=== PATIENT | female | born 1945 | race African-American/Black ===

== ENCOUNTER → 2020-02-17 | Outpatient (CLI) | payer OTHER, MEDICARE ==
[~2020-02-17] MED LIST: ABIL5 PO; ACET-2708 PO; ATOR40TA70 PO; B25 PO; COLC0.6C3 PO; GLIM4TAB36 PO; INSU100I28 SQ; LISI-648 PO; MONT10TA21 PO; OMEP40CA12 PO; SERT100T PO
== END | disposition home or self-care (01) ==
LOC: LAB 08:51
PROVIDERS: ATTEND Ophthalmology
DX: Z01.812 Encounter for preprocedural laboratory examination (principal); Z20.828 Contact with and (suspected) exposure to other viral communicable diseases
CPT/HCPCS: C9803; U0003

== ENCOUNTER 2020-02-21 09:49 | Day surgery (SDC) | payer MEDICARE ==
[~2020-02-21] VITALS: Ht 154.9 cm; Wt 82.6 kg
[2020-02-21] MEDS ORDERED: CIPROFLOXACIN 0.3% OPHTH SOLN 2.5ML ONE (10:00)
[2020-02-21] MEDS ORDERED: LIDOCAINE HCL/PF 2% 20 MG/ML 10ML VIAL ONE (10:00)
[2020-02-21] MEDS ORDERED: ACETYLCHOLINE CHLORIDE INTRAOCULAR SOLUTION 1:100 ELECTROLYTE DILUENT IO ONE (10:00)
[2020-02-21] MEDS ORDERED: BUPIVACAINE HCL/PF 0.75% (7.5MG/ML) 10ML ONE (10:00)
[2020-02-21] MEDS ORDERED: BALANCED SALT IRRIG SOLN 15ML ONE (10:00)
[2020-02-21] MEDS ORDERED: PHENYLEPHRINE HCL 10% OPHTH DROPS 5ML ONE (10:00)
[2020-02-21] MEDS ORDERED: PREDNISOLONE ACETATE 1% OPHTH DROPS 5ML ONE (10:00)
[2020-02-21] MEDS ORDERED: NEO/POLYMYX B SULF/DEXAMETH OPHTH OINT 3.5GM ONE (10:00)
[2020-02-21] MEDS ORDERED: LIDOCAINE HCL 2%/EPINEPHRINE 1:100,000 20 ML VIAL INFIL ONE (10:00)
[2020-02-21] MEDS ORDERED: TROPICAMIDE 1% OPHTH DROPS 15ML ONE (10:00)
[2020-02-21] MEDS ORDERED: ATOR40TA70 PO (10:21)
[2020-02-21] MEDS ORDERED: INSU100I28 SQ (10:21)
[2020-02-21] MEDS ORDERED: OMEP40CA12 PO (10:21)
[2020-02-21] MEDS ORDERED: ABIL5 PO (10:21)
[2020-02-21] MEDS ORDERED: GLIM4TAB36 PO (10:21)
[2020-02-21] MEDS ORDERED: LISI-648 PO (10:21)
[2020-02-21] MEDS ORDERED: B25 PO (10:21)
[2020-02-21] MEDS ORDERED: SERT100T PO (10:21)
[2020-02-21] MEDS ORDERED: COLC0.6C3 PO (10:21)
[2020-02-21] MEDS ORDERED: ACET-2708 PO (10:27)
[2020-02-21] MEDS ORDERED: MONT10TA21 PO (10:27)
[2020-02-21] MEDS ORDERED: CYCLOPENTOLATE HCL 1% OPHTH DROPS 2ML RIGHTEYE NR (10:30)
[2020-02-21] MEDS ORDERED: TROPICAMIDE 1% OPHTH DROPS 15ML RIGHTEYE NR (10:30)
[2020-02-21] MEDS ORDERED: PHENYLEPHRINE HCL 10% OPHTH DROPS 5ML RIGHTEYE NR (10:30)
[2020-02-21] MEDS ORDERED: LACTATED RINGERS 1,000 ML IV SCH (11:00)
[2020-02-21] MEDS ORDERED: BALANCED SALT IRRIG SOLN COMB1 500ML OP ONE (11:00)
[2020-02-21] MEDS ORDERED: PROPOFOL 200MG/20ML VIAL IV ONE (12:23)
[2020-02-21] MEDS ORDERED: LIDOCAINE HCL/PF 1% 10 MG/ML 5ML VIAL ONE (12:24)
[2020-02-21] MEDS ORDERED: DEXTROSE 50% WATER 50ML SYRINGE IV ONE (14:40)
[2020-02-21] MEDS ORDERED: HYDRALAZINE 20MG/ML VIAL ONE (15:15)
[2020-02-21] MEDS ORDERED: HYALURONATE SODIUM 10 MG/ML 0.55ML SYRINGE IO ONE (15:30)
[2020-02-21] MEDS ORDERED: ONDANSETRON HCL 4MG/2ML INJ IV PRN ×2 (15:45)
[2020-02-21] MEDS ORDERED: MEPERIDINE HCL/PF 25MG/ML CPJ IV PRN (15:45)
== END 2020-02-21 16:40 | disposition home or self-care (01) ==
LOC: OR 09:49 → EDUNIT# 12:00 → OR 16:40
PROVIDERS: ATTEND Ophthalmology
DX: E11.36 Type 2 diabetes mellitus with diabetic cataract (principal); H25.89 Other age-related cataract; I10 Essential (primary) hypertension; E78.00 Pure hypercholesterolemia, unspecified; F31.9 Bipolar disorder, unspecified; K21.9 Gastro-esophageal reflux disease without esophagitis; E66.9 Obesity, unspecified; Z87.891 Personal history of nicotine dependence; Z79.82 Long term (current) use of aspirin; Z79.4 Long term (current) use of insulin; Z79.84 Long term (current) use of oral hypoglycemic drugs; Z82.49 Family history of ischemic heart disease and other diseases of the circulatory system; Z83.3 Family history of diabetes mellitus; Z90.710 Acquired absence of both cervix and uterus; Z98.890 Other specified postprocedural states; Z68.34 Body mass index [BMI] 34.0-34.9, adult
CPT/HCPCS: 66984; 82962; J0360; J2704; J3490; V2632

== ENCOUNTER 2020-03-08 10:05 | Emergency (ER) | payer MEDICARE, MEDICAID ==
[~2020-03-08] VITALS: Ht 154.9 cm; Wt 84.0 kg
[2020-03-08] MEDS ORDERED: KETOROLAC 30MG/ML VIAL IV STA (10:30)
[2020-03-08] MEDS ORDERED: SODIUM CHLORIDE 0.9% 1,000 ML IV ONE (10:30)
[2020-03-08 11:10] LABS: BASOPHILS % 1.2 % (0.0-2.0); EOSINOPHILS % 1.5 % (0.0-5.0); HEMATOCRIT. 40.3 % (36.0-48.0); HEMOGLOBIN. 13.7 g/dL (12.0-16.0); LYMPHOCYTES % 28.9 % (20.0-50.0); MEAN CORPUSCULAR VOLUME 88.3 fL (81.0-99.0); MEAN PLATELET VOLUME 7.8 fl (7.4-10.4); MONOCYTES % 4.5 % (2.0-8.0); NEUTROPHILS % 63.9 % (40.0-76.0); PLATELET 292 x1000/uL (130-400); RED BLOOD CELL COUNT 4.57 mill/uL (4.2-5.4); RED CELL DISTRIBUTION WIDTH 14.9 % (11.6-14.6)
[2020-03-08 11:15] LABS: CHLORIDE 106 mEq/L (98-107)
[2020-03-08 11:19] LABS: PROTHROMBIN TIME 10.4 sec (9.6-11.0)
[2020-03-08 12:47] LABS: CLARITY URINE CLEAR (CLEAR); COLOR URINE YELLOW (YELLOW); KETONES URINE TRACE (NEGATIVE); LEUKOCYTE ESTERASE URINE TRACE (NEGATIVE); NITRITE URINE NEGATIVE (NEGATIVE); OCCULT BLOOD URINE NEGATIVE (NEGATIVE); PROTEIN URINE NEGATIVE (NEGATIVE); SPECIFIC GRAVITY URINE 1.022 (1.005-1.030); UROBILINOGEN URINE 0.2 E.U./dL (0.2-1.0)
[2020-03-08] MEDS ORDERED: TRAMADOL 50MG TABLET PO ONE ×2 (13:45)
[2020-03-08 15:00] VITALS: BP 128/75
== END 2020-03-08 15:50 | disposition home or self-care (01) ==
LOC: ER 10:05
DX: R10.9 Unspecified abdominal pain (principal); N39.0 Urinary tract infection, site not specified; I10 Essential (primary) hypertension; E78.00 Pure hypercholesterolemia, unspecified; E11.9 Type 2 diabetes mellitus without complications; Z79.4 Long term (current) use of insulin; Z90.710 Acquired absence of both cervix and uterus; Z98.890 Other specified postprocedural states
CPT/HCPCS: 36415; 71045; 74176; 80053; 81003; 83690; 84484; 85025; 85610; 87086; 93005; 96361; 96374; 99285; J1885; J7030

== ENCOUNTER 2021-06-14 12:28 | Emergency (ER) | payer MEDICARE, MEDICAID ==
[~2021-06-14] VITALS: Ht 154.9 cm; Wt 82.0 kg
[~2021-06-14 12:28] MED LIST changes: -OMEP40CA12 PO; +OMEP40CA20 PO
[2021-06-14 15:42] LABS: CHLORIDE 108 mEq/L (98-107)
[2021-06-14 15:52] LABS: BASOPHILS % 0.8 % (0.0-2.0); EOSINOPHILS % 1.1 % (0.0-5.0); HEMATOCRIT. 39.1 % (36.0-48.0); HEMOGLOBIN. 12.9 g/dL (12.0-16.0); LYMPHOCYTES % 41.2 % (20.0-50.0); MEAN CORPUSCULAR HEMOGLOBIN 28.4 pg (28.0-32.0); MEAN CORPUSCULAR VOLUME 86.2 fL (81.0-99.0); MEAN PLATELET VOLUME 7.8 fl (7.4-10.4); MONOCYTES % 6.6 % (2.0-8.0); NEUTROPHILS % 50.3 % (40.0-76.0); PLATELET 330 x1000/uL (130-400); RED BLOOD CELL COUNT 4.54 mill/uL (4.2-5.4)
[2021-06-14 18:53] VITALS: BP 141/77
== END 2021-06-14 18:55 | disposition home or self-care (01) ==
LOC: ER 12:28
DX: L02.31 Cutaneous abscess of buttock (principal); E11.65 Type 2 diabetes mellitus with hyperglycemia; I10 Essential (primary) hypertension; Z79.899 Other long term (current) drug therapy; Z98.890 Other specified postprocedural states
CPT/HCPCS: 36415; 80053; 82962; 85025; 93005; 99284